=== PATIENT | female | born 2000 | race Hispanic/Latino ===

== ENCOUNTER 2023-08-01 19:57 | Emergency (ER) | payer OTHER ==
[2023-08-01 20:56] LABS: Specific Gravity 1.008 (1.005-1.030)
[2023-08-01 20:57] LABS: Absolute Eosinophils 0.1 K/uL (0-0.5); Absolute Lymphocytes (CBC) 2.7 K/uL (0.7-4.9); Absolute Monocytes 0.5 K/uL (0.1-1.3); Absolute Neutrophil 2.4 K/uL (1.8-8.0); Basophils % 0.6 % (0-1.3); Eosinophils % 1.2 % (0-4.4); Hematocrit 32.4 % (36.0-45.0); Hemoglobin 10.2 g/dL (12.0-15.0); Lymphocytes % 47.1 % (15.3-44.8); MCH 21.6 pg (27.0-35.0); MCHC 31.6 g/dL (32.0-36.0); MCV 68.2 fL (80-100); MPV 6.8 fL (7.6-11.3); Monocytes % 8.9 % (3.3-12.3); Neutrophils % 42.2 % (41.7-73.7); Platelets 337 thou/uL (152-406); RBC Red Blood Cell Count 4.75 M/uL (3.86-4.86); Red Cell Distribution Width 16.6 % (12.1-15.2)
[2023-08-01 20:59] LABS: Specific Gravity 1.008 (1.005-1.030); Sqamous Epithelial <5 /HPF (None Seen); Urine Bacteria None Seen /HPF (<20); Urine Bilirubin NEGATIVE (Negative); Urine Blood 1+ (Negative); Urine Clarity Clear (Clear); Urine Color Colorless (Yellow); Urine Culture Reflex Order NOT NEEDED; Urine Glucose NEGATIVE (Negative); Urine Ketones NEGATIVE (Negative); Urine Microscopic Reflex YN ORDER UMIC; Urine Nitrite NEGATIVE (Negative); Urine Protein NEGATIVE (Negative); Urine RBC <5 /HPF (None Seen); Urine Urobilinogen Normal (Normal); Urine WBC <5 /HPF (<5); Urine pH 6.5 (5.0-7.0)
[2023-08-01 21:19] LABS: Albumin 3.3 g/dL (3.4-5.0); Albumin/Globulin Ratio 0.9 (1.1-1.8); Anion Gap 9.3 mEq/L (5.0-15.0); Bilirubin Total 0.5 mg/dL (0.2-1.0); Globulin 3.6 g/dL (2.3-3.5); Potassium 3.3 mEq/L (3.5-5.1); Protein, Total 6.9 g/dL (6.4-8.2)
--- NOTE | 2023-08-01 21:36 | RAD REPORT ---
EXAM DESCRIPTION: CT - Stone Protocol - 08/01/2023 9:29 pm CLINICAL HISTORY: Flank pain. FLANK PAIN COMPARISON: No comparisons TECHNIQUE: Axial images were obtained without oral or IV contrast. Lack of contrast limits solid org an and vascular assessment. The [id number] spans the entirety of the system partially obscuring uppermost abdomen and lung bases. Coronal reformatted images were obtained and reviewed. All CT scans are performed using dose optimization technique as appropriate and may include automated exposure control or mA/KV adjustment according to patient size. FINDINGS: The lower lung contreras are clear. Imaged portions of the liver and spleen show no suspicious findings on non-contrast imaging. The panc reas and adrenal glands are normal. No pathologic lymphadenopathy in the abdomen or pelvis. No urinary tract stones or obstructive uropathy. No bowel obstruction, free air, free fluid or abscess. Normal appendix noted. No significant bony abnormality. IMPRESSION: No urinary tract stones or obstructive uropathy.
[2023-08-01] MEDS ORDERED: KETOROLAC 30 MG/ML INJ ONE (21:37)
--- NOTE | 2023-08-01 21:43 | ER ---
Nurse's Notes [facility] Name: Maryuri Dan Age: 22 yrs Sex: Female : 2000 Arrival Date: 08/01/2023 Time: 19:57 Bed 18 Private MD: Diagnosis: Right flank pain Presentation: 07/31 20:29 Chief complaint: Patient states: right sided flank pain, nausea. Coronavirus screen: At as6 this time, the client does not indicate any symptoms associated with coronavirus-19. Ebola Screen: No symptoms or risks identified at this time. Initial Sepsis Screen: Does the patient meet any 2 criteria? No. Patient's initial sepsis screen is negative. Does the patient have a suspected source of infection? No. Patient's initial sepsis screen is negative. Risk Assessment: Do you want to hurt yourself or someone else? Patient reports no desire to harm self or others. Onset of symptoms was July 30, 2023. 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 - Infectious Disease History:: Denies. - Social history:: Smoking status: Patient denies any tobacco usage or history of. Screenin:40 [facility] ED Fall Risk Assessment (Adult) History of falling in the last 3 months, jj7 including since admission No falls in past 3 months (0 pts) Confusion or Disorientation No (0 pts) Intoxicated or Sedated No (0 pts) Impaired Gait No (0 pts) Mobility Assist Device Used No (0 pt) Altered Elimination No (0 pt) Score/Fall Risk Level 0 - 2 = Low Risk Oriented to surroundings, Maintained a safe environment, Educated pt \T\ family on fall prevention, incl call for assistance when getting out of bed. Abuse screen: Denies threats or abuse. Nutritional screening: No deficits noted. Tuberculosis screening: No symptoms or risk factors identified. Assessment: 20:40 General: Appears in no apparent distress. comfortable, Behavior is calm, cooperative, jj7 appropriate for age. Pain: Complains of pain in posterior aspect of right lateral abdomen. : Reports pain in right flank(s). Vital Signs: 20:28 BP 123 / 88; Pulse 75; Resp 18 S; Temp 97.9; Pulse Ox 100% on R/A; Weight 57.61 kg (R); as6 Height 5 ft. 5 in. (R); Pain 8/10; 21:30 BP 145 / 85; Pulse 76; Resp 17; Temp 98.4; Pulse Ox 100% ; Pain 0/10; jj7 20:28 Body Mass Index 21.13 (57.61 kg, 165.1 cm) as6 20:28 Pain Scale: Adult as6 21:30 Pain Scale: Adult jj7 ED Course: 20:03 Patient arrived in ED. gm2 20:03 Danyelle Carranza [facility]-C [facility] kb 20:03 Gary Campos MD is Attending Physician. kb 20:27 Arm band placed on right wrist. as6 20:29 Triage completed. as6 20:35 Shashi Fabian, JUAN CARLOS is Primary Nurse. jj7 20:40 Patient has correct armband on for positive identification. Bed in low position. Call jj7 light in reach. Adult w/ patient. Provided Education on: USE OF CALL PEREZ. 20:40 No provider procedures requiring assistance completed. jj7 20:45 Inserted saline lock: 20 gauge in right antecubital area, using aseptic technique. jj7 Blood collected. 20:48 Test, Urine Sent. jj7 20:48 Urinalysis w/ reflexes Sent. jj7 20:48 CMP Sent. jj7 20:48 CBC with Diff Sent. jj7 21:31 CT Stone Protocol In Process Unspecified. EDMS 21:55 IV discontinued, intact, bleeding controlled, No redness/swelling at site. Pressure jj7 dressing applied. Administered Medications: 21:39 Drug: Ketorolac IVP 15 mg IVP once Route: IVP; Site: right antecubital; jj7 21:56 Follow up: Response: Marked relief of symptoms jj7 Medication: 20:40 VIS not applicable for this client. jj7 Outcome: 21:42 Discharge ordered by . kb 21:55 Discharged to home ambulatory, with family, jj7 21:55 Condition: improved 21:55 Discharge instructions given to patient, Instructed on discharge instructions, Demonstrated understanding of instructions, 21:58 Patient left the ED. jj7 Signatures: Dispatcher [employer] EDDanyelle May, FLORENCE HOWELLP-Ashok Mesa RN RN as6 Shashi Fabian RN RN jj7 Suzanne Hunter 2 Corrections: (The following items were deleted from the chart) 21:57 21:57 IV discontinued, intact, bleeding controlled, No redness/swelling at site. jj7 Pressure dressing applied, jj7
--- NOTE | 2023-08-01 21:43 | EDPHYS ---
Physician Documentation [facility] Name: Maryuri Dan Age: 22 yrs Sex: Female : 2000 Arrival Date: 08/01/2023 Time: 19:57 Bed 18 Private MD: ED Physician Gary Campos HPI: 07/31 23:51 This 22 yrs old Female presents to ER via Ambulatory with complaints of Low kb Back Pain. 23:51 Pt is a 22 year old female who presents for right flank pain that radiates to abd and kb nausea that started 3 days ago. Denies fever, urinary symptoms. . 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 - Infectious Disease History:: Denies. - Social history:: Smoking status: Patient denies any tobacco usage or history of. ROS: 23:51 Constitutional: As per HPI kb Exam: 23:51 Constitutional: This is a well developed, well nourished patient who is awake, alert, kb and in no acute distress. Head/Face: Normocephalic, atraumatic. ENT: Moist Mucous membranes Cardiovascular: Regular rate Respiratory: Respirations even and unlabored. No increased work of breathing. Talking in full sentences Abdomen/GI: Soft, non-tender. No distention Skin: Warm, dry with normal turgor. Normal color. MS/ Extremity: Pulses equal, no cyanosis. Neurovascular intact. Full, normal range of motion. Neuro: Awake and alert, GCS 15, oriented to person, place, time, and situation. Moves all extremities. Normal gait. 23:51 Back: pain, that is mild, of the right mid back, CVA tenderness, is absent, Vital Signs: 20:28 BP 123 / 88; Pulse 75; Resp 18 S; Temp 97.9; Pulse Ox 100% on R/A; Weight 57.61 kg (R); as6 Height 5 ft. 5 in. (R); Pain 8/10; 21:30 BP 145 / 85; Pulse 76; Resp 17; Temp 98.4; Pulse Ox 100% ; Pain 0/10; jj7 20:28 Body Mass Index 21.13 (57.61 kg, 165.1 cm) as6 20:28 Pain Scale: Adult as6 21:30 Pain Scale: Adult jj7 MDM: 20:04 Patient medically screened. kb 23:52 Differential diagnosis: nephrolithiasis, pyelonephritis, UTI, strain. Data reviewed: kb vital signs, nurses notes. Counseling: I had a detailed discussion with the patient and/or guardian regarding the historical points, exam findings, and any diagnostic results supporting the discharge/admit diagnosis, lab results, radiology results, the need for outpatient follow up, a family practitioner, to return to the emergency department if symptoms worsen or persist or if there are any questions or concerns that arise at home. 07/31 20:13 Order name: CBC with Diff; Complete Time: 21:02 kb 07/31 20:13 Order name: CMP; Complete Time: 21:20 kb 07/31 20:13 Order name: Test, Urine; Complete Time: 21:02 kb 07/31 20:13 Order name: Urinalysis w/ reflexes; Complete Time: 21:02 kb 07/31 20:13 Order name: CT Stone Protocol; Complete Time: 21:37 kb 07/31 20:13 Order name: IV Start; Complete Time: 20:48 kb Administered Medications: 21:39 Drug: Ketorolac IVP 15 mg IVP once Route: IVP; Site: right antecubital; jj7 21:56 Follow up: Response: Marked relief of symptoms jj7 Disposition: 08/01 05:14 Co-signature as Attending Physician, Gary Campos MD I agree with the assessment sp4 and plan of care. I reviewed the patient's care provided by the Advanced Practice Provider and agree with the diagnosis and treatment plan. Disposition Summary: 08/01/23 21:42 Discharge Ordered Notes: Location: Home kb Condition: Stable kb Diagnosis - Right flank pain kb Followup: kb - With: Emergency Department - When: As needed - Reason: Worsening of condition Followup: kb - With: Private Physician - When: 2 - 3 days - Reason: Recheck today's complaints, Continuance of care, Re-evaluation by your physician Discharge Instructions: - Discharge Summary Sheet kb - Flank Pain, Adult, [id number] kb Forms: - Medication Reconciliation Form kb - Antibiotic Education kb - Prescription Opioid Use kb - Patient Portal Instructions kb - Leadership Thank You Letter kb Signatures: Dispatcher [employer] Danyelle Caldwell FNP-C FNP-Ashok Mesa RN RN as6 Shashi Fabian RN RN jj7 Gary Campos MD MD sp4
[2023-08-01 22:24] VITALS: BP 145/85; TEMP 98.4; O2SAT 100
== END 2023-08-01 21:58 | disposition home or self-care (01) ==
LOC: ER 19:57
DX: R10.9 Unspecified abdominal pain (principal)
CPT/HCPCS: 36415; 74176; 76377; 80053; 81001; 81025; 85025; 96374; 99284